=== PATIENT | male | born 1945 | race Caucasian/White ===

== ENCOUNTER 2016-09-10 13:05 | Day surgery (SDC) | payer MEDICARE ==
[2016-09-10] MEDS ORDERED: PROPOFOL 10 MG/ML VIAL IV ONE (14:00)
[2016-09-10] MEDS ORDERED: FENTANYL PF 100MCG/2ML VIAL IV ONE (14:00)
[2016-09-10] MEDS ORDERED: LIDOCAINE 2% MDV (20MG/ML) 20ML VIAL IV ONE (14:00)
[2016-09-10] MEDS ORDERED: MIDAZOLAM HCL 2MG/2ML VIAL IV ONE (14:00)
--- NOTE | 2016-09-15 09:09 | Operative Note ---
DATE OF SURGERY: 09/10/16 OPERATION: Esophagogastroduodenoscopy with multiple electrocautery snare polypectomies. REFERRING PHYSICIAN: Juan Chapman D.O. INDICATION: Previous endoscopy demonstrated multiple gastric fundal polyps. One was quite large and pedunculated measuring approximately 2.0 cm in size. It was removed with electrocautery snare, and pathology demonstrated an adenomatous type polyp with inflammatory changes. Upper endoscopy is repeated at this time for further evaluation of the residual polyps and for their removal. ANESTHESIA: Intravenous sedation was administered by the Department of Anesthesiology and included Diprivan titrated to effect. PROCEDURE: Following informed consent from this alert individual, including a discussion of the risks and benefits of the procedure and an opportunity for the patient to ask questions, the patient was in the left lateral decubitus position. The Olympus [id number] video endoscope was inserted into the esophagus without resistance. The proximal and mid esophagus has a normal appearance with normal folds and distensibility. The distal esophageal segment, likewise, was free from mucosal changes. There was a hiatal hernia encountered, measuring approximately 2.0 to 3.0 cm in length. The hernia sac itself was free from change. The subdiaphragmatic stomach was then entered. There were multiple gastric fundal polyps noted. The body and antrum of the stomach were endoscopically unremarkable. The pylorus was patent. The duodenal bulb, sweep , and third portion of the duodenum were endoscopically unremarkable. There were no polyps noted. The endoscope was then drawn back into the stomach where retroflexion accomplished following air insufflation again revealed the multiple gastric polyps. They ranged in size from perhaps 5.0 to 6.0 mm in size all the way up to 1.2 cm in size. The polyps appeared to be inflammatory, but adenomatous change could not be determined endoscopically. For the above reason, a polypectomy was performed at 9 polyp sites. Each polyp was ultimately removed with a Rai retrieval net. There was no bleeding noted at the end of the procedure; although there was a small amount of blood noted at two of the polypectomy sites. This quickly stopped. The endoscope was then withdrawn. The patient tolerated the procedure well and was returned to the recovery area in stable condition. IMPRESSION: 1. A total of 9 gastric fundal polyps were removed with electrocautery snare as described above. 2. A hiatal hernia. RECOMMENDATIONS: Further recommendations will be forthcoming pending the results of the pathology obtained today. Pending results, repeat endoscopy might be arranged. STAR [employer] cc: Juan Chapman D.O. Job Number: [id number] MTDD
== END 2016-09-10 15:05 | disposition home or self-care (01) ==
LOC: HOP 13:05
PROVIDERS: ATTEND Internal Medicine Gastroenterology
DX: K31.7 Polyp of stomach and duodenum (principal); K44.9 Diaphragmatic hernia without obstruction or gangrene; Z79.82 Long term (current) use of aspirin
CPT/HCPCS: 43251; 00740; J3010

== ENCOUNTER 2017-09-23 10:34 | Day surgery (SDC) | payer MEDICARE ==
[2017-09-23] MEDS ORDERED: PROPOFOL 10 MG/ML VIAL IV ONE (10:35)
[2017-09-23] MEDS ORDERED: LIDOCAINE 2% MDV (20MG/ML) 20ML VIAL IV ONE (10:35)
[2017-09-23] MEDS ORDERED: FENTANYL PF 100MCG/2ML VIAL IV ONE (10:35)
--- NOTE | 2017-09-23 14:20 | Operative Note ---
DATE OF SURGERY: 09/23/2017 REFERRING PHYSICIAN: Ritesh Chapman DO PREOPERATIVE DIAGNOSIS: See below. POSTOPERATIVE DIAGNOSIS: See below. PROCEDURE: ESOPHAGOGASTRODUODENOSCOPY with electrocautery snare polypectomy x1, and Endoclip placement x1. INDICATION: History of inflamed polyps removed in the past. They were hyperplastic in histology; however, patient is complaining of epigastric pain which wakes him up from sleep at night, rule out acid peptic disease. He states that the pain improves after belching. Intravenous sedation was administered by the Department of Anesthesiology and included Diprivan titrated to effect. PROCEDURE: Following informed consent from this alert individual, including a discussion of the risks and benefits of the procedure and an opportunity for the patient to ask questions, the patient was placed in the left lateral decubitus position. An Olympus [id number] video endoscope was inserted into the esophagus after multiple attempts. Additionally, it was thought that the patient might have a Zenker's diverticulum with a pouch noted in the posterior pharynx. The proximal esophagus had a normal appearance with normal folds and distensibility. Mid and distal esophagus, likewise, were free from mucosal changes. There was a 2-3 cm hiatal hernia noted. The hernia sac itself was free from changes. The stomach was entered. The gastric fundus and pars media demonstrated multiple small polyps; however, there was 1 large polyp in the mid portion of the stomach seen best on retroflexion. The remainder of the stomach was otherwise endoscopically unremarkable with a patent, normal-appearing pylorus. The duodenum was cannulated and found to be unremarkable. The endoscope was then withdrawn back into the body of the stomach, where retroflexion again accomplished following air insufflation revealed a hiatal hernia, and the above-mentioned polyp. Utilizing electrocautery snare polypectomy, the polyp was removed. There was initially some bleeding, and for this reason, Endoclip was placed at the polypectomy site. The bleeding stopped. The polyp was then removed with a Rai retrieval net. The remainder of the examination was unremarkable. The patient tolerated the procedure well and was returned to the recovery area in stable condition. IMPRESSION: 1. Possible Zenker's diverticulum. 2. A 2-3 cm hiatal hernia. 3. A 1 cm inflammatory-appearing polyp removed from the mid portion of the stomach with electrocautery snare polypectomy. And Endoclip was placed at this site as well. RECOMMENDATIONS: Further recommendations will be forthcoming pending results of biopsy obtained today. The patient will be scheduled to have an upper GI x-ray to evaluate for Zenker's diverticulum, and further recommendations forthcoming. Followup will also be with Dr. Ritesh Chapman. As always, thank you for allowing me to participate in the care of your patient. CC: DO ARIELLA Lopez
== END 2017-09-23 12:35 | disposition home or self-care (01) ==
LOC: HOP 10:34
PROVIDERS: ATTEND Internal Medicine Gastroenterology
DX: R10.13 Epigastric pain (principal); Z87.19 Personal history of other diseases of the digestive system; K21.9 Gastro-esophageal reflux disease without esophagitis; K44.9 Diaphragmatic hernia without obstruction or gangrene; K31.7 Polyp of stomach and duodenum; I10 Essential (primary) hypertension
CPT/HCPCS: 43235; 00731; J3010

== ENCOUNTER 2018-12-22 22:59 | Emergency (ER) | payer MEDICARE ==
[2018-12-22] MEDS ORDERED: PROPARACAINE HCL OPTH 15ML BTL OPTH ONE (23:03)
[2018-12-22] MEDS ORDERED: ERYTHROMYCIN OPTH OINT 3.5GM OPTH ONE (23:16)
--- NOTE | 2018-12-22 23:20 | Emergency Department Record ---
History of Present Illness - General Chief complaint: Eye Problem Stated complaint: LT LEYE IRRATATION Time Seen by Provider: 12/22/18 23:09 Source: Patient Mode of Arrival: Ambulatory Limitations: No limitations Travel/Exposure to [facility] [place] Within 21 Days of Symptoms: No - History of Present Illness Initial comments: The patient is here due to L eye irritation and watering for the last 3 days. It seems to be getting worse. He denies any eye pain, photophobia, trauma, or contact lens use. The patient states the eye feels mildly irritated. MD chief complaint: Other Onset/Timin -: Days(s) Onset Description: Gradual Location: Left eye Place: Home Eye Symptoms: Redness, Other Severity: Moderate Severity scale (1-10): 4 Consistency: Constant, Getting worse Context: Other Associated Symptoms: None Treatments Prior to Arrival: Irrigated eye, OTC eye drops - Related Data Visual acuity (L) = 20/: 70 Visual acuity (R) = 20/: 50 With correction: No Previous Rx's Medication Instructions Recorded Hyoscyamine Sulfate [Levsin] 0.125 mg PO Q4HR #40 tablet 03/14/16 Allergies Allergy/AdvReac Type Severity Reaction Status Date / Time metoprolol succinate AdvReac ABDOMINAL Verified 03/14/16 18:09 [From Toprol XL] PAIN Sulfa (Sulfonamide AdvReac DIZZINESS Verified 03/14/16 18:09 Antibiotics) warfarin sodium AdvReac HEADACHE Verified 03/14/16 18:08 [From Coumadin] Travel Screening - Travel/Exposure Within Last 30 Days Have you traveled within the last 30 days?: No - Travel Symptoms Symptom Screening: None Review of Systems Constitutional: Denies: Chills, Fever Eyes: Denies: Eye discharge, Eye pain ENT: Denies: Congestion Respiratory: Denies: Cough, Dyspnea Past Medical History - SOCIAL HISTORY Smoking Status: Never smoker Alcohol Use: None Drug Use: None - RESPIRATORY Hx Respiratory Disorders: No - CARDIOVASCULAR Hx Cardio Disorders: Yes Hx Abnormal EKG: Yes Hx Hypertension: Yes Hx Irregular Heartbeat: Yes (Afib/controlled by meds) Comment:: n/a - NEURO Hx Neuro Disorders: Yes Hx of Migraines: Yes (occasionally) - GI Hx GI Disorders: Yes Hx Abdominal Pain: Yes ("gas" pain) Hx Reflux: Yes (Burt's) Hx Hiatal Hernia: Yes Hx Nausea/Vomiting: No Hx Wt Loss/Wt Gain: No (n/a) Hx of Polyps: Yes (gastic and colon) - Hx Genitourinary Disorders: Yes Hx Prostate Problems: Yes (BPH (urethral stricture-(self caths occasionally)) Comment:: urinary dilations, and self caths every 3-4 weeks - ENDOCRINE Hx Endocrine Disorders: No - MUSCULOSKELETAL Hx Musculoskeletal Disorders: Yes Hx Arthritis: Yes Hx Back Injury: Yes (from a fall years ago) Comment:: scoliosis - PSYCH Hx Psych Problems: No - HEMATOLOGY/ONCOLOGY Hx Hematology/Oncology Disorders: Yes Hx Cancer: Yes (few spots on face) Hx Chemotherapy: No Hx Radiation Therapy: No Family Medical History Any Significant Family History?: Yes Hx Cancer: Mother, Grandparents *Cancer Comment: mother- skin cancer Hx Diabetes: Father Physical Exam - General General Appearance: Alert, Oriented x3, Cooperative, No acute distress - Head Head exam: Atraumatic, Normocephalic, Normal inspection - Eye Eye exam: Normal appearance, PERRL, EOMI, Other (The L cornea is neg for flourescein uptake.). negative: Conjunctival injection, Periorbital swelling, Periorbital tenderness Visual acuity (L) = 20/: 70 Visual acuity (R) = 20/: 50 With correction: No - ENT ENT exam: Normal exam, Mucous membranes moist, Normal external ear exam, Normal orophraynx, TM's normal bilaterally Throat exam: Normal inspection. negative: Tonsillar erythema, Tonsillar exudate - Neck Neck exam: Normal inspection, Full ROM. negative: Lymphadenopathy, Meningismus, Tenderness - Extremities Extremities exam: Normal inspection, Full ROM, Normal capillary refill. negative: Tenderness - Neurological Neurological exam: Alert. negative: Motor sensory deficit Course Vital Signs 12/22/18 23:06 Temperature 97.9 F Pulse Rate 60 Respiratory 12 Rate Blood Pressure 164/84 Pulse Ox 98 - Reevaluation(s) Reevaluation #1: I did explain to the patient that I see no injury or infection on the cornea. We will place the patient on Emycin opthalmic ointment and have him see his eye doctor later this week. 12/22/18 23:18 Disposition Disposition: Discharge Clinical Impression: Irritation of eye Disposition: Home, Self-Care Condition: (2) Stable Instructions: Conjunctivitis (ED) Additional Instructions: Please use the Emycin ointment in the L eye 4 times a day for 5 days and please see your eye doctor later this week for recheck. Forms: Patient Portal Access Time of Disposition: 23:20 Quality - Quality Measures Quality Measures: N/A - Blood Pressure Screening View Details: Yes Does Patient Have Any of the Following: No Blood Pressure Classification: Pre-Hypertensive BP Reading Systolic Measurement: 164 Diastolic Measurement: 84 Screening for High Blood Pressure: < Pre-Hypertensive BP, F/U Documented > [G8950] Pre-Hypertensive Follow-up Interventions: Referral to alternative/primary care provider.
== END 2018-12-22 23:26 | disposition home or self-care (01) ==
LOC: ER 22:59
DX: H57.12 Ocular pain, left eye (principal); I10 Essential (primary) hypertension; I48.91 Unspecified atrial fibrillation
CPT/HCPCS: 99282

== ENCOUNTER 2019-09-07 12:26 | Day surgery (SDC) | payer MEDICARE ==
[2019-09-07] MEDS ORDERED: PROPOFOL 10 MG/ML VIAL IV ONE (12:27)
[2019-09-07] MEDS ORDERED: LIDOCAINE 2% MDV (20MG/ML) 20ML VIAL IV ONE (12:27)
--- NOTE | 2019-09-08 09:11 | Operative Note ---
OPERATION: ESOPHAGOGASTRODUODENOSCOPY with multiple biopsies. INDICATION: History of multiple gastric fundal polyps. One polyp in the past did demonstrate adenomatous change and for this reason, I recommended recheck endoscopy. He had large polyps that were removed with electrocautery snare in the past. In fact, at one visit he had 9 polyps removed. All 9 polyps during his last endoscopy were hyperplastic in type. Clinically, patient is doing pretty well. He denies significant pain. He does complain of occasional dysphagia in the cervical region related to his Zenker diverticulum. ANESTHESIA: Intravenous sedation was administered by the department of anesthesiology and included Diprivan titrated to effect. PROCEDURE: Following informed consent from this alert individual, including a discussion of the risks and benefits of the procedure and an opportunity for the patient to ask questions, the patient was in the left lateral decubitus position. The Olympus [id number] endoscope was inserted into the esophagus with some difficulty due to the Zenker diverticulum. The esophageal mucosa itself throughout appeared to be normal. There was a 3-4 cm hiatal hernia sac encountered. The subdiaphragmatic stomach was entered and demonstrated multiple small fundal gland polyps. Some appeared erythematous. The antrum evaluated circumferential demonstrated some mild erythema. The pylorus was symmetrical and patent. The duodenal bulb, sweep and descending duodenum were examined in a serial fashion and found to be normal. The endoscope was then withdrawn back into the body of the stomach. Retroflexion accomplished following air insufflation again revealed a hiatal hernia. The endoscope was then straightened. Sampling of multiple polyps was taken to rule out adenomatous change although they appeared to be small and typical fundal gland polyps in type. After biopsy, endoscope was then withdrawn. There was a Zenker diverticulum noted again at the cervical esophageal region. The instrument was removed. The patient tolerated the procedure well and was returned to the recovery area in stable condition. IMPRESSION: 1. Cervical esophageal Zenker diverticulum. 2. A 3-4 cm hiatal hernia. 3. Multiple gastric fundal polyps, biopsies taken. 4. No ulcerations or erosions noted. RECOMMENDATION: Further recommendations will be forthcoming pending results of biopsy obtained today. If polyps prove to be of non-adenomatous type, then I would recommend a recheck endoscopy in approximately 3 years' time or sooner if problems arise. Followup will be with Dr. Cardona. As always, thank you for allowing me to participate in the care of your patient. ARIELLA
== END 2019-09-07 15:21 | disposition home or self-care (01) ==
LOC: HOP 12:26
PROVIDERS: ATTEND Internal Medicine Gastroenterology
DX: Z87.19 Personal history of other diseases of the digestive system (principal); K22.70 Barrett's esophagus without dysplasia; K44.9 Diaphragmatic hernia without obstruction or gangrene; K22.5 Diverticulum of esophagus, acquired; I10 Essential (primary) hypertension; I48.91 Unspecified atrial fibrillation; Z79.01 Long term (current) use of anticoagulants